=== PATIENT | male | born 1940 | race Caucasian/White ===

== ENCOUNTER 2019-03-17 10:54 | Emergency (ER) | payer MEDICARE ==
[~2019-03-17] VITALS: Ht 175.3 cm; Wt 74.0 kg
[2019-03-17 11:05] VITALS: BP 165/76
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
--- NOTE | 2019-03-17 11:41 | NUR ---
Pt resting with eyes closed. NAD noted at this time. Respirations even and unlabored on RA. Daughters at bedside. Side rails up, call light in reach. Awaiting CT scan.
--- NOTE | 2019-03-17 12:02 | NUR ---
Assumed care at this time.
--- NOTE | 2019-03-17 12:04 | NUR ---
Report to LETTY Lim.
--- NOTE | 2019-03-17 13:03 | NUR ---
C collar removed for comfort.
--- NOTE | 2019-03-17 13:31 | NUR ---
Patient/Caregiver given discharge instructions and they have confirmed that they understand the instructions. Patient ambulatory with steady gait.
== END 2019-03-17 13:33 | disposition home or self-care (01) ==
LOC: ED 13:27
DX: S06.0X0A Concussion without loss of consciousness, initial encounter (principal); X58.XXXA Exposure to other specified factors, initial encounter; Y93.89 Activity, other specified; Y92.89 Other specified places as the place of occurrence of the external cause; Y99.8 Other external cause status
CPT/HCPCS: 70450; 70486; 72125; 93005; 99284